=== PATIENT | male | born 1985 | race Hispanic/Latino ===

== ENCOUNTER 2021-03-29 18:31 | Emergency (ER) | payer OTHER ==
[2021-03-29] MEDS ORDERED: MORPHINE 4 MG/ML SYR ONE (19:48)
[2021-03-29] MEDS ORDERED: ONDANSETRON 4 MG/2 ML VIAL ONE (19:48)
[2021-03-29] MEDS ORDERED: NA CHLORIDE 0.9% 1,000 ML ONE (19:49)
[2021-03-29 20:03] LABS: Absolute Lymphocytes (CBC) 2.5 K/uL (0.7-4.9); Hematocrit 48.8 % (39.6-49.0); Lymphocytes % 24.5 % (15.3-44.8); MPV 7.6 fL (7.6-11.3); RBC Red Blood Cell Count 5.69 M/uL (4.33-5.43)
[2021-03-29 20:16] LABS: Protime INR 1.09
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
[2021-03-29 20:29] LABS: Albumin 4.3 g/dL (3.4-5.0); Bilirubin Direct 0.1 mg/dL (0-0.2); Bilirubin Total 0.4 mg/dL (0.2-1.0); Potassium 3.8 mmol/L (3.5-5.1); Protein, Total 8.4 g/dL (6.4-8.2)
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
[2021-03-30] VITALS: TEMP 98.5
[2021-03-30 00:19] VITALS: O2SAT 97
[2021-03-30 00:21] VITALS: BP 116/68
== END 2021-03-29 23:24 | disposition home or self-care (01) ==
LOC: ER 18:31
DX: S16.1XXA Strain of muscle, fascia and tendon at neck level, initial encounter (principal); S70.11XA Contusion of right thigh, initial encounter; S30.1XXA Contusion of abdominal wall, initial encounter; V59.40XA Driver of pick-up truck or van injured in collision with unspecified motor vehicles in traffic accident, initial encounter; E11.9 Type 2 diabetes mellitus without complications
CPT/HCPCS: 96361; 85025; 80048; 36415; 86900; 86850 ×2; 85610; 82565; 86901; 80076; 85730; 70450; 72125; 71260; 74177; 73552; 76870; 96375; 96374; 99284; Q9967; J7030; J2405

== ENCOUNTER 2022-08-20 22:15 | Emergency (ER) | payer SELFPAY ==
--- OUTSIDE RECORDS SUMMARY | 2022-08-20 22:17 | XMS REPORT | Continuity of Care Document ---
:1985 Author Organization [facility] t Address [address] [facility] [address] [place] [id number] Care Team Providers Name Role Phone Gabbie Attending Clinician Unavailable Gabbie Admitting Clinician Unavailable Problems This patient has no known problems. Allergies, Adverse Reactions, Alerts This patient has no known allergies or adverse reactions. Medications This patient has no known medications. Procedures This patient has no known procedures. Encounters Start End Encounter Admission Attending Care Care Encounter Source Date/Time Date/Time Type Type Clinicians Facility Department ID 2022-03-02 2022-03-02 Outpatient Jose BONE [facility] [id number] Adriana 00:00:00 00:00:00 David [id number] Orthop e dic Sports Medicin e Results This patient has no known results.
[2022-08-20] MEDS ORDERED: HYDROCODONE/APAP 10/325 TAB ONE (22:36)
[2022-08-20] MEDS ORDERED: TETANUS & DIPHTHERIA TOX,ADULT 0.5 ML VIAL ONE (22:37)
--- NOTE | 2022-08-20 22:51 | ER ---
Nurse's Notes [facility] Name: Andrews Castro Age: 36 yrs Sex: Male : 1985 Arrival Date: 08/20/2022 Time: 22:15 Bed 12 Private MD: Diagnosis: Laceration without foreign body of right little finger without damage to nail, initial encounter-avulsion Presentation: 08/20 22:21 Chief complaint: Patient states: pt is at work, accidentally cut the 5th digit of the kl right hand from a sharp metal. laceration to the 5th digit of the right hand, bleeding controlled. Coronavirus screen: Vaccine status: Patient reports receiving the 2nd dose of the covid vaccine. Ebola Screen: Patient negative for fever greater than or equal to 101.5 degrees Fahrenheit, and additional compatible Ebola Virus Disease symptoms Patient denies exposure to infectious person. Patient denies travel to an Ebola-affected area in the 21 days before illness onset. Initial Sepsis Screen: Does the patient meet any 2 criteria? No. Patient's initial sepsis screen is negative. Does the patient have a suspected source of infection? No. Patient's initial sepsis screen is negative. Risk Assessment: Do you want to hurt yourself or someone else? Patient reports no desire to harm self or others. Onset of symptoms was August 20, 2022. 22:21 Method Of Arrival: Ambulatory 22:21 Acuity: SATURNINO 4 kl Triage Assessment: 22:23 General: Appears uncomfortable, Behavior is calm, cooperative. Pain: Complains of pain kl in right hand. Neuro: Level of Consciousness is awake, alert, obeys commands, Oriented to person, place, time, situation. Cardiovascular: Capillary refill < 3 seconds Patient's skin is warm and dry. Respiratory: Airway is patent Respiratory effort is even, unlabored. Derm: Wound noted dorsal aspect of middle phalanx of right little finger. Historical: - Home Meds: 22:23 Metformin Oral [Active]; kl - PMHx: 22:23 diabetes mellitus; Hypertensive disorder; kl - Immunization history:: Adult Immunizations up to date, Last tetanus immunization: unknown. - Social history:: Smoking status: Patient denies any tobacco usage or history of. Screenin:25 [facility] ED Fall Risk Assessment (Adult) History of falling in the last 3 months, kl including since admission No falls in past 3 months (0 pts) Confusion or Disorientation No (0 pts) Intoxicated or Sedated No (0 pts) Impaired Gait No (0 pts) Mobility Assist Device Used No (0 pt) Altered Elimination No (0 pt) Score/Fall Risk Level 0 - 2 = Low Risk Oriented to surroundings, Maintained a safe environment, Educated pt \T\ family on fall prevention, incl call for assistance when getting out of bed, Assessed \T\ reinforced patient's understanding of fall precautions, Provided non-skid footwear, Hourly rounding (assess needs \T\ fall precautionary measures) done, Used ambulatory aids as needed (educated on \T\ assisted with), Used gait belt as appropriate. Abuse screen: Denies threats or abuse. Denies injuries from another. Nutritional screening: No deficits noted. Tuberculosis screening: No symptoms or risk factors identified. Vital Signs: 22:21 BP 128 / 89; Pulse 83; Resp 18; Temp 98; Pulse Ox 100% on R/A; Weight 124.74 kg; Height kl 5 ft. 11 in. ; 22:21 Body Mass Index 38.35 (124.74 kg, 180.34 cm) ED Course: 22:17 Patient arrived in ED. ag3 22:18 Cassidy Sanchez [facility]-C [facility]. kb 22:18 Harpreet Murphy MD is Attending Physician. kb 22:23 Triage completed. kl 22:24 Arm band placed on right wrist. kl 22:30 Patient has correct armband on for positive identification. rv 22:59 Isael Castro, RN is Primary Nurse. rv 22:59 No provider procedures requiring assistance completed. Patient did not have IV access rv during this emergency room visit. 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 Exp: rv 08/01/2023. Lot #: [id number]. } Route: IM; Site: right deltoid; 22:59 Follow up: Response: No adverse reaction rv 22:32 Drug: Dewitt PO 10 mg-325 mg 1 tabs Route: PO; rv 22:59 Follow up: Response: No adverse reaction rv Medication: 22:59 Vaccine Information Statement (VIS) provided today. Questions and/or concerns rv addressed. VIS edition date: August 20, 2022. Outcome: 22:51 Discharge ordered by . kory 22:59 Discharged to home ambulatory. rv 22:59 Condition: good 22:59 Discharge instructions given to patient, Instructed on discharge instructions, the need for admit, wound care, Demonstrated understanding of instructions, follow-up care, wound care. 23:00 Patient left the ED. rv Signatures: Cassidy Sanchez, SALES OPERATIONS COORDINATOR-C EFRAÍN-Olga Mejia RN Isael Mccarthy RN RN Lola Roger
--- NOTE | 2022-08-20 22:51 | EDPHYS ---
Physician Documentation [facility] Name: Andrews Castro Age: 36 yrs Sex: Male : 1985 Arrival Date: 08/20/2022 Time: 22:15 Bed 12 Private MD: ED Physician Harpreet Murphy HPI: 08/20 22:55 This 36 yrs old Male presents to ER via Ambulatory with complaints of kb LACERATION TO FINGER. 22:55 The patient has a laceration occurred at home, The injury was accidental. The kb laceration(s) is(are) located on the dorsal aspect of middle phalanx of right little finger. Onset: The symptoms/episode began/occurred just prior to arrival. Associated signs and symptoms: The patient has no apparent associated signs or symptoms. The patient has not experienced similar symptoms in the past. The patient has not recently seen a physician. Pt states he reached into a bag to get a screw and cut his finger on something that was in there. States the skin was hanging off so he pulled it all the way off. Came in because he wasn't sure if he needed stitches. Historical: - Home Meds: 22:23 Metformin Oral [Active]; kl - PMHx: 22:23 diabetes mellitus; Hypertensive disorder; kl - Immunization history:: Adult Immunizations up to date, Last tetanus immunization: unknown. - Social history:: Smoking status: Patient denies any tobacco usage or history of. ROS: 22:48 Constitutional: Negative for fever, chills, and weight loss. kb 22:48 Skin: Positive for laceration(s), of the dorsal aspect of middle phalanx of right little finger. 22:48 All other systems are negative. Exam: 22:48 Constitutional: This is a well developed, well nourished patient who is awake, alert, kb and in no acute distress. Head/Face: Normocephalic, atraumatic. ENT: Moist Mucous membranes Cardiovascular: Regular rate and rhythm with a normal S1 and S2. No gallops, murmurs, or rubs. No pulse deficits. Respiratory: Respirations even and unlabored. No increased work of breathing. Talking in full sentences MS/ Extremity: Pulses equal, no cyanosis. Neurovascular intact. Full, normal range of motion. Neuro: Awake and alert, GCS 15, oriented to person, place, time, and situation. Moves all extremities. Normal gait. 22:48 Skin: injury, avulsion(s), a small of the dorsal aspect of middle phalanx of right little finger. Vital Signs: 22:21 BP 128 / 89; Pulse 83; Resp 18; Temp 98; Pulse Ox 100% on R/A; Weight 124.74 kg; Height kl 5 ft. 11 in. ; 22:21 Body Mass Index 38.35 (124.74 kg, 180.34 cm) kl MDM: 22:18 Patient medically screened. kb 22:50 Data reviewed: vital signs, nurses notes. kb 22:55 Differential diagnosis: superficial laceration, vascular injury, avulsion laceration. kb Counseling: I had a detailed discussion with the patient and/or guardian regarding: the historical points, exam findings, and any diagnostic results supporting the discharge/admit diagnosis, the need for outpatient follow up, a family practitioner, to return to the emergency department if symptoms worsen or persist or if there are any questions or concerns that arise at home. 08/20 22:25 Order name: Wound Care; Complete Time: 22:26 kb Administered Medications: 22:31 Drug: Tetanus-Diphtheria Toxoid IM Adult 0.5 ml {Roll Cutter: [employer]. Exp: rv 08/01/2023. Lot #: [id number]. } Route: IM; Site: right deltoid; 22:59 Follow up: Response: No adverse reaction rv 22:32 Drug: Maxbass PO 10 mg-325 mg 1 tabs Route: PO; rv 22:59 Follow up: Response: No adverse reaction rv Disposition: 08/21 02:48 Co-signature as Attending Physician, Harpreet Murphy MD I agree with the assessment sp4 and plan of care. I reviewed the patient's care provided by the Advanced Practice Provider and agree with the diagnosis and treatment plan. Disposition Summary: 08/20/22 22:51 Discharge Ordered Location: Home Condition: Stable Diagnosis - Laceration without foreign body of right little finger without damage to nail, kb initial encounter - avulsion Followup: kb - With: Emergency Department - When: As needed - Reason: Worsening of condition Followup: kb - With: Private Physician - When: 2 - 3 days - Reason: Recheck today's complaints, Continuance of care, Re-evaluation by your physician Discharge Instructions: - Discharge Summary Sheet kb - Deep Skin Avulsion kb Forms: - Medication Reconciliation Form kb - Thank You Letter kb - Antibiotic Education kb - Prescription Opioid Use kb - [email or web address] kory Signatures: Cassidy Sanchez, NORIC EFRAÍN-Olga Mejia RN RN kl Vicente, Ronaldo, RN RN rv Potepalov, Sergey, MD MD sp4
[2022-08-20 23:28] VITALS: BP 128/89; TEMP 98; O2SAT 100
== END 2022-08-20 23:00 | disposition home or self-care (01) ==
LOC: ER 22:15
DX: S61.216A Laceration without foreign body of right little finger without damage to nail, initial encounter (principal); E11.9 Type 2 diabetes mellitus without complications
CPT/HCPCS: 90471; 90714; 99284

== ENCOUNTER 2023-06-21 19:55 | Emergency (ER) | payer BC, SELFPAY ==
--- OUTSIDE RECORDS SUMMARY | 2023-06-21 19:57 | XMS REPORT | Continuity of Care Document ---
Author Name Unknown Address [address] [place] [address] thconnect Address [address] [place] [address] [address] [place] [address] Care Team Providers Care Wire Winding Machine Tender Name Role Phone Gabbie Attending Clinician Unavailab le Gabbie Admitting Clinician Unavailab le Encounters Start Date/Time End Date/Time Encounter Type Admission Type Attending Clinicians Care Facility Care Department Encounter ID Source 2022-03-02 00:00:00 2022-03-02 00:00:00 Outpatient Jose Hernandez AOSM AO [id number] [facility]
--- NOTE | 2023-06-21 21:14 | RAD REPORT ---
EXAM DESCRIPTION: RAD - Chest Single View - 06/21/2023 9:04 pm CLINICAL HISTORY: CHEST PAIN Chest pain. COMPARISON: No comparisons FINDINGS: Portable technique limits examination quality. The lungs are grossly clear. The heart is upper limit of normal in size. No displaced fractures. IMPRESSION: No acute intrathoracic process suspected.
[2023-06-21] MEDS ORDERED: ASPIRIN 81 MG CHEWABLE TABLET ONE (22:42)
[2023-06-21 23:10] LABS: Absolute Basophils 0.1 K/uL (0-0.5); Absolute Eosinophils 0.1 K/uL (0-0.5); Absolute Monocytes 0.7 K/uL (0.1-1.3); Absolute Neutrophil 5.6 K/uL (1.8-8.0); Basophils % 0.8 % (0-1.3); Eosinophils % 1.5 % (0-4.4); Hematocrit 44.7 % (39.6-49.0); Hemoglobin 15.5 g/dL (13.6-17.9); Lymphocytes % 31.2 % (15.3-44.8); MCH 29.4 pg (27.0-35.0); MCHC 34.7 g/dL (32.0-36.0); MCV 84.8 fL (80-100); MPV 7.2 fL (7.6-11.3); Monocytes % 7.7 % (3.3-12.3); Neutrophils % 58.8 % (41.7-73.7); Nucleated Red Blood Cells % 0.3 % (0-0); Platelets 245 thou/uL (152-406); RBC Red Blood Cell Count 5.27 M/uL (4.33-5.43); Red Cell Distribution Width 13.7 % (12.1-15.2)
[2023-06-21 23:32] LABS: ALT/SGPT 40 U/L (16-61); AST/SGOT 17 U/L (15-37); Albumin/Globulin Ratio 1.2 (1.1-1.8); Alkaline Phosphatase 44 U/L (45-117); Anion Gap 8.2 mEq/L (5.0-15.0); BUN Blood Urea Nitrogen 17 mg/dL (7-18); Bicarbonate 25 mEq/L (21-32); Bilirubin Direct 0.2 mg/dL (0-0.2); Bilirubin Indirect, Calculated 0.4 mg/dL (0.2-0.8); Bilirubin Total 0.6 mg/dL (0.2-1.0); Globulin 3.4 g/dL (2.3-3.5); Glomerular Filtration Rate 91 ml/min (=/>90); Glucose Level 107 mg/dL (74-106); Magnesium 2.3 mg/dL (1.6-2.4); Potassium 3.2 mEq/L (3.5-5.1); Protein, Total 7.4 g/dL (6.4-8.2); Sodium Level 138 mEq/L (136-145); Troponin High Sensitivity 3.5 pg/mL (<58.9)
[2023-06-21 23:36] LABS: NT PRO-BNP < 5 pg/mL (<125)
[2023-06-21 23:40] LABS: PT Prothrombin Time 13.1 SECONDS (9.5-12.5); Protime INR 1.2
--- NOTE | 2023-06-22 00:58 | ER ---
Nurse's Notes [facility] Name: Andrews Castro Age: 37 yrs Sex: Male : 1985 Arrival Date: 06/21/2023 Time: 19:55 Bed 8 Private MD: Diagnosis: Chest pain, unspecified;Noncardiac chest pain Presentation: 06/20 20:02 Chief complaint: Patient states: sharp sudden chest pain that radiated down left arm. as6 at time of triage pt states that the pain is slightly improved. Coronavirus screen: At this time, the client does not indicate any symptoms associated with coronavirus-19. Ebola Screen: No symptoms or risks identified at this time. Initial Sepsis Screen: Does the patient meet any 2 criteria? No. Patient's initial sepsis screen is negative. Does the patient have a suspected source of infection? No. Patient's initial sepsis screen is negative. Risk Assessment: Do you want to hurt yourself or someone else? Patient reports no desire to harm self or others. Onset of symptoms was June 21, 2023. 20:02 Acuity: SATURNINO 2 as6 20:02 Method Of Arrival: Ambulatory as6 Triage Assessment: 20:03 General: Appears uncomfortable, Behavior is cooperative, anxious. Pain: Complains of as6 pain in chest Pain radiates to left arm. Cardiovascular: Reports chest pain. Historical: - Allergies: 20:01 No Known Allergies; as6 - PMHx: 20:01 Hypertensive disorder; diabetes mellitus; as6 - PSHx: 20:01 Appendectomy; as6 - Immunization history:: Adult Immunizations not up to date. - Infectious Disease History:: Denies. - Social history:: Smoking status: Patient denies any tobacco usage or history of. - Family history:: not pertinent. Screenin:30 [facility] ED Fall Risk Assessment (Adult) History of falling in the last 3 months, me1 including since admission No falls in past 3 months (0 pts) Confusion or Disorientation No (0 pts) Intoxicated or Sedated No (0 pts) Impaired Gait No (0 pts) Mobility Assist Device Used No (0 pt) Altered Elimination No (0 pt) Score/Fall Risk Level 0 - 2 = Low Risk Maintained a safe environment, Provided non-skid footwear, Hourly rounding (assess needs \T\ fall precautionary measures) done. Abuse screen: Denies threats or abuse. Nutritional screening: No deficits noted. Tuberculosis screening: No symptoms or risk factors identified. Assessment: 20:30 General: Appears comfortable, well groomed, well developed, well nourished, Behavior is me1 calm, cooperative, appropriate for age, Reports c/o sudden onset of chest pain while working that radiates to left arm, pain is sharp and 5/10 and lasted about 3 minutes. Pain: Complains of pain in chest Pain radiates to left arm Pain currently is 5 out of 10 on a pain scale. Quality of pain is described as sharp, Pain began suddenly, Is continuous. Neuro: Level of Consciousness is awake, alert, obeys commands, Oriented to person, place, time, situation, Appropriate for age. Cardiovascular: Capillary refill < 3 seconds Patient's skin is warm and dry. Respiratory: Airway is patent Respiratory effort is even, unlabored, Respiratory pattern is regular, symmetrical. GI: No signs and/or symptoms were reported involving the gastrointestinal system. : No signs and/or symptoms were reported regarding the genitourinary system. EENT: No signs and/or symptoms were reported regarding the EENT system. Derm: Skin is intact, is healthy with good turgor, Skin is pink, warm \T\ dry. Musculoskeletal: No signs and/or symptoms reported regarding the musculoskeletal system. Vital Signs: 20:00 BP 154 / 92; Pulse 88; Resp 18 S; Temp 97.5(TE); Pulse Ox 96% on R/A; Weight 117.93 kg as6 (R); Height 5 ft. 11 in. (R); Pain 2/10; 21:00 BP 124 / 77; Pulse 76; Resp 16; Pulse Ox 94% on R/A; me1 22:00 BP 115 / 77; Pulse 75; Resp 16; Pulse Ox 94% on R/A; me1 23:00 BP 121 / 83; Pulse 78; Resp 16; Pulse Ox 95% on R/A; me1 05 01:13 BP 118 / 71; Pulse 75; Resp 16; Temp 98; Pulse Ox 96% on R/A; rv 06/20 20:00 Body Mass Index 36.26 (117.93 kg, 180.34 cm) as6 06/20 20:00 Pain Scale: Adult as6 Es Coma Score: 01:12 Eye Response: spontaneous(4). Motor Response: obeys commands(6). Verbal Response: sp4 oriented(5). Total: 15. ED Course: 06/20 19:58 Patient arrived in ED. ra3 20:02 Arm band placed on. as6 20:03 Triage completed. as6 20:12 Harpreet Murphy MD is Attending Physician. sp4 20:12 EKG done, by ED staff, reviewed by Harpreet Murphy MD. pf1 20:30 Patient has correct armband on for positive identification. Bed in low position. Call me1 light in reach. Side rails up X2. Provided Education on: POC. Verbalized understanding. . 20:30 No provider procedures requiring assistance completed. O2 via room air. me1 21:06 XRAY Chest (1 view) In Process Unspecified. EDMS 22:39 Client placed on continuous cardiac and pulse oximetry monitoring. NIBP monitoring me1 applied. roller printer on. Pulse ox on. NIBP on. 22:39 Initial lab(s) drawn, by me, sent to lab. Inserted saline lock: 22 gauge in right me1 antecubital area, using aseptic technique. 22:40 Basic Metabolic Panel Sent. me1 22:40 CBC with Diff Sent. me1 22:40 LFT's Sent. me1 22:40 Magnesium Sent. me1 22:40 NT PRO-BNP Sent. me1 22:40 PT-INR Sent. me1 22:40 Troponin HS Sent. me1 22:41 Isael Castro, RN is Primary Nurse. rv 06/21 00:00 Troponin High Sensitivity: collect at midnight Sent. me1 00:57 Addy Saeed MD is Referral Physician. sp4 01:13 IV discontinued, intact, bleeding controlled, No redness/swelling at site. Pressure rv dressing applied. Administered Medications: 06/20 22:44 Drug: Aspirin PO Chewable Tablet 324 mg PO once; 81 mg tablets x 4 Route: PO; me1 22:45 Follow up: Response: No adverse reaction me1 Medication: 20:30 VIS not applicable for this client. me1 Outcome: 06/21 00:58 Discharge ordered by . sp4 01:13 Discharged to home ambulatory, rv 01:13 Condition: good 01:13 Discharge instructions given to patient, Instructed on discharge instructions, follow up and referral plans. Demonstrated understanding of instructions, follow-up care, 01:13 Patient left the ED. rv Signatures: Dispatcher [employer] Isael Felton RN RN Artemio Nagy RN RN as6 Glendy Kasper RN RN pf1 Harpreet Murphy MD MD sp4 Abbi Espinal RN RN wy1 Bryanna Srivastava 3 Corrections: (The following items were deleted from the chart) 06/20 20:02 20:01 PSHx: None; as6 as6
--- NOTE | 2023-06-22 00:58 | EDPHYS ---
Physician Documentation [facility] Name: Andrews Castro Age: 37 yrs Sex: Male : 1985 Arrival Date: 06/21/2023 Time: 19:55 Bed 8 Private MD: ED Physician Harpreet Murphy HPI: 06/20 20:12 This 37 yrs old Male presents to ER via Ambulatory with complaints of Chest sp4 Pain - with arm numbness. 06/21 01:09 37 year old male acute onset midsternal stabbing chest pain on physical exertion sp4 associated with working patient states he has history of diabetes hypertension. On presentation to ER pain has subsided. Patient reports sharp stabbing midsternal chest pain with radiation to the left arm. . Historical: - Allergies: 06/20 20:01 No Known Allergies; as6 - PMHx: 20:01 Hypertensive disorder; diabetes mellitus; as6 - PSHx: 20:01 Appendectomy; as6 - Immunization history:: Adult Immunizations not up to date. - Infectious Disease History:: Denies. - Social history:: Smoking status: Patient denies any tobacco usage or history of. - Family history:: not pertinent. ROS: 06/21 01:09 Constitutional: Negative for fever, chills, and weight loss, positive chest pain sp4 All other systems are negative, Exam: 01:09 Constitutional: This is a well developed, well nourished patient who is awake, alert, sp4 and in no acute distress. Head/Face: Normocephalic, atraumatic. Eyes: Pupils equal round and reactive to light, extra-ocular motions intact. Lids and lashes normal. Conjunctiva and sclera are not injected. Cornea within normal limits. Periorbital areas with no swelling, redness, or edema. ENT: Nares patent. No nasal discharge, no septal abnormalities noted. Tympanic membranes are normal and external auditory canals are clear. Oropharynx with no redness, swelling, or masses, exudates, or evidence of obstruction, uvula midline. Mucous membranes moist. Neck: Trachea midline, no thyromegaly or masses palpated, and no cervical lymphadenopathy. Supple, full range of motion without nuchal rigidity, or vertebral point tenderness. Chest/axilla: Normal chest wall appearance and motion. Nontender with no deformity. No lesions are appreciated. Cardiovascular: Regular rate and rhythm with a normal S1 and S2. No gallops, murmurs, or rubs. Normal PMI, no JVD. No pulse deficits. Respiratory: Lungs have equal breath sounds bilaterally, clear to auscultation and percussion. No rales, rhonchi or wheezes noted. No increased work of breathing, no retractions or nasal flaring. Abdomen/GI: Soft, with normal bowel sounds. No distension or tympany. No guarding or rebound. No evidence of tenderness throughout. Back: No spinal tenderness. No costovertebral tenderness. Skin: Warm, dry with normal turgor. Normal color with no rashes, no lesions, and no evidence of cellulitis. MS/ Extremity: Pulses equal, no cyanosis. Neurovascular intact. Full, normal range of motion. Neuro: Awake and alert, GCS 15, oriented to person, place, time, and situation. Cranial nerves II-XII grossly intact. Motor strength 5/5 in all extremities. Sensory grossly intact. Psych: Awake, alert, with orientation to person, place and time. Behavior, mood, and affect are within normal limits 01:09 ECG was reviewed by the Attending Physician. EKG at 2007 normal sinus rhythm with rate of 79, otherwise normal EKG 01:12 Repeat EKG at 0008 normal sinus rhythm at the rate of 68, rightward axis otherwise sp4 normal EKG no ST elevation or depression Vital Signs: 06/20 20:00 BP 154 / 92; Pulse 88; Resp 18 S; Temp 97.5(TE); Pulse Ox 96% on R/A; Weight 117.93 kg as6 (R); Height 5 ft. 11 in. (R); Pain 2/10; 21:00 BP 124 / 77; Pulse 76; Resp 16; Pulse Ox 94% on R/A; me1 22:00 BP 115 / 77; Pulse 75; Resp 16; Pulse Ox 94% on R/A; me1 23:00 BP 121 / 83; Pulse 78; Resp 16; Pulse Ox 95% on R/A; me1 05 01:13 BP 118 / 71; Pulse 75; Resp 16; Temp 98; Pulse Ox 96% on R/A; rv 06/20 20:00 Body Mass Index 36.26 (117.93 kg, 180.34 cm) as6 06/20 20:00 Pain Scale: Adult as6 Es Coma Score: 01:12 Eye Response: spontaneous(4). Motor Response: obeys commands(6). Verbal Response: sp4 oriented(5). Total: 15. MDM: 06/20 20:[address] [facility] 06/21 01:13 Differential diagnosis: abnormal EKG, acute myocardial infarction, acute pericarditis, sp4 anxiety, coronary artery disease. HEART Score: History: Moderately Suspicious (1), ECG: Normal (0), Age: < or = 45 years (0), Risk Factors: 1 or 2 risk factors (1), Troponin: < or = 1 x Normal Limit (0), Total Score = 2. Data reviewed: vital signs, nurses notes, lab test result(s), EKG, radiologic studies, plain films. ED course: EXAM DESCRIPTION: RAD - Chest Single View - 06/21/2023 9:04 pm CLINICAL HISTORY: CHEST PAIN Chest pain. COMPARISON: No comparisons FINDINGS: Portable technique limits examination quality. The lungs are grossly clear. The heart is upper limit of normal in size. No displaced fractures. IMPRESSION: No acute intrathoracic process suspected. . ED course: Troponin x 2 is negative. Patient is pain-free. Patient stable for discharge home there is follow-up advised with Dr. Saeed on outpatient basis. . 06/20 20:12 Order name: Basic Metabolic Panel; Complete Time: 00:52 [facility] 06/20 20:12 Order name: CBC with Diff; Complete Time: 00: [facility] 06/20 20:12 Order name: LFT's; Complete Time: 00: [facility] 06/20 20:12 Order name: Magnesium; Complete Time: 00: [facility] 06/20 20:12 Order name: NT PRO-BNP; Complete Time: 00:52 [facility] 06/20 20:12 Order name: PT-INR; Complete Time: 00: [facility] 06/20 20:12 Order name: Troponin HS; Complete Time: 00: [facility] 06/20 23:29 Order name: Troponin High Sensitivity: collect at midnight; Complete Time: 00:52 [facility] 06/20 20:12 Order name: XRAY Chest (1 view); Complete Time: 00:52 sp4 06/20 20:12 Order name: EKG; Complete Time: 20:13 sp4 06/20 23:29 Order name: EKG: at midnight; Complete Time: 23:30 sp4 06/20 20:11 Order name: EKG - Nurse/Tech; Complete Time: 20:11 pf1 06/20 20:12 Order name: Cardiac monitoring; Complete Time: 22:39 sp4 06/20 20:12 Order name: EKG - Nurse/Tech; Complete Time: 20:55 sp4 06/20 20:12 Order name: IV Saline Lock; Complete Time: 22:39 sp4 06/20 20:12 Order name: Labs collected and sent; Complete Time: 22:40 sp4 06/20 20:12 Order name: O2 Per Protocol; Complete Time: :40 sp4 06/20 20:12 Order name: O2 Sat Monitoring; Complete Time: :40 sp4 EC:09 Rate is 79 beats/min. Rhythm is regular, Normal Sinus Rhythm. QRS [place] is Normal. [place] sp4 interval is normal. QRS interval is normal. QT interval is normal. No Q waves. T waves are Normal. No ST changes noted. Clinical impression: Normal ECG. Interpreted by me. Reviewed by me. Administered Medications: 06/20 22:44 Drug: Aspirin PO Chewable Tablet 324 mg PO once; 81 mg tablets x 4 Route: PO; me1 22:45 Follow up: Response: No adverse reaction me1 Disposition Summary: 06/22/23 00:58 Discharge Ordered Problem: new sp4 Symptoms: have improved sp4 Condition: Stable sp4 Diagnosis - Chest pain, unspecified sp4 - Noncardiac chest pain sp4 Followup: sp4 - With: Addy Saeed MD - When: 7 - 10 days - Reason: Recheck today's complaints Discharge Instructions: - Discharge Summary Sheet sp4 - Nonspecific Chest Pain, Adult, [id number] sp4 Forms: - Patient Portal Instructions sp4 Signatures: Dispatcher [employer] Artemio Cadena RN RN as6 Glendy Kasper RN RN pf1 Harpreet Murphy MD MD sp4 Abbi Espinal RN RN me1 Corrections: (The following items were deleted from the chart) 20:02 20:01 PSHx: None; as6 as6 20:13 20:13 BASIC METABOLIC PANEL+C.LAB.BRZ ordered. EDMS EDMS 20:13 20:13 CBC+H.LAB.BRZ ordered. EDMS EDMS 20:13 20:13 HEPATIC FUNCTION+C.LAB.BRZ ordered. EDMS EDMS 20:13 20:13 MAGNESIUM+C.LAB.BRZ ordered. EDMS EDMS 20:13 20:13 PROBNP+C.LAB.BRZ ordered. EDMS EDMS 20:13 20:13 PROTIME (+INR)+COAG.LAB.BRZ ordered. EDMS EDMS 20:13 20:13 Troponin High Sensitivity+C.LAB.BRZ ordered. EDMS EDMS
[2023-06-22 02:27] VITALS: BP 118/71; TEMP 98; O2SAT 96
--- NOTE | 2023-06-22 13:06 | EKG ---
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
--- NOTE | 2023-06-22 13:08 | EKG ---
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
== END 2023-06-22 01:13 | disposition home or self-care (01) ==
LOC: ER 19:55
DX: R07.89 Other chest pain (principal); I10 Essential (primary) hypertension
CPT/HCPCS: 36415; 71045; 80048; 80076; 83735; 83880; 84484; 85025; 85610; 93005; 99285